=== PATIENT | female | born 1995 | race Caucasian/White ===

== ENCOUNTER 2017-09-14 22:39 | Emergency (ER) | payer SELFPAY | END 2017-09-15 03:26 | disposition left against medical advice (07) | LOC: FTE 22:39 | DX: Z53.21 Procedure and treatment not carried out due to patient leaving prior to being seen by health care provider (principal) ==

== ENCOUNTER 2018-05-21 23:55 | Outpatient (CLI) | payer OTHER ==
[2018-05-22 02:32] LABS: ADD UMIC NO; UR ASCORBIC ACID NEGATIVE (NEGATIVE); UR BILIRUBIN (Dip) NEGATIVE (NEGATIVE); UR BLOOD (Dip) NEGATIVE (NEGATIVE); UR CLARITY CLEAR (CLEAR); UR COLOR YELLOW (YELLOW); UR GLUCOSE (Dip) NEGATIVE (NEGATIVE); UR KETONES (Dip) 1+ mg/dL (NEGATIVE); UR LEUKOCYTE ESTERASE (Dip) NEGATIVE Leu/ul (NEGATIVE); UR NITRITE (Dip) NEGATIVE (NEGATIVE); UR SPECIFIC GRAVITY (Dip) 1.009 (1.003-1.030); UR TOTAL PROTEIN (Dip) NEGATIVE (NEGATIVE); UR UROBILINOGEN (Dip) NEGATIVE (NEGATIVE)
== END 2018-05-22 06:22 | disposition home or self-care (01) ==
LOC: OBT 23:55 → L-D 23:55 → OBT 05-22 06:22
DX: O62.9 Abnormality of forces of labor, unspecified (principal); Z3A.33 33 weeks gestation of pregnancy
CPT/HCPCS: 76815; 76817; 81003

== ENCOUNTER 2018-11-23 22:07 | Emergency (ER) | payer OTHER | END 2018-11-23 23:31 | disposition home or self-care (01) | LOC: FTE 23:31 | DX: S20.162A Insect bite (nonvenomous) of breast, left breast, initial encounter (principal); W57.XXXA Bitten or stung by nonvenomous insect and other nonvenomous arthropods, initial encounter; Y92.9 Unspecified place or not applicable | CPT/HCPCS: 99282; Z7502 ==